=== PATIENT | male | born 1965 | race African-American/Black ===

== ENCOUNTER 2018-05-19 21:12 | Emergency (ER) | payer MEDICAID ==
[~2018-05-19] VITALS: Ht 175.3 cm; Wt 117.9 kg
--- NOTE | 2018-05-19 21:20 | NUR ---
ED Nurse Note: Patient walk in c/o left knee pain for 4x hours. Patient states he was walking up the stairs, twisted his L knee, and heard a pop.STEVED seen Pt at bedside.
[2018-05-19] MEDS ORDERED: ASPIR 8181 MG ORAL (21:23)
[2018-05-19] MEDS ORDERED: QUETIAPINE FUMA25 MG ORAL (21:23)
--- NOTE | 2018-05-19 21:37 | Emergency Room Report ---
History of Present Illness General Chief Complaint: Lower Extremity Injury Source: Patient Present Illness HPI Patient presents with left knee pain. He was walking stairs and twisted his knee. He heard a "pop". He's had reconstructive surgery on that knee although he can't state specifically what it was for. He's had had some physical therapy with the knee. He hasn't taken any medication for pain. The pain is 10 /10 at this time - aching and sharp. He is unable to weight-bear. He has not iced it. Pain radiates towards his groin. Patient had a pacemaker placed last month for slow heart rate. No chest pain or dizziness. 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 [facility] Reviewed Nursing Documentation: PMH: Agreed; PSxH: Agreed Nursing Documentation-PMH Past Medical History: No History, Except For Hx Cardiac Problems: Yes - bradycardia Hx Pacemaker: Yes - pacemaker 04/2018 Review of Systems Constitutional: Denies: fever Cardiovascular: Reports: see HPI Musculoskeletal: Reports: see HPI Skin: Denies: rash Neurological: Denies: numbness Physical Exam Vital Signs Date Time Temp Pulse Resp B/P (MAP) Pulse Ox O2 Delivery O2 Flow Rate FiO2 05/19/18 21:21 99.1 99 24 145/83 96 Room Air Sp02 EP Interpretation: reviewed, normal General Appearance: obese Head: normocephalic, atraumatic Eyes: bilateral eye normal inspection, bilateral eye PERRL ENT: hearing grossly normal, normal voice Neck: full range of motion, supple Respiratory: lungs clear, normal breath sounds, no respiratory distress, speaking full sentences, other - pacer R Cardiovascular #1: regular rate, rhythm Cardiovascular #2: 2+ dorsalis pedis (L) Gastrointestinal: non tender, overweight Musculoskeletal: no calf tenderness, pelvis stable, decreased range of mation, swelling, other - ligamients stable but lateral tenderness. Unable to bend knee for drawer or Applie's complression Neurologic: alert, normal gait, other - distal neuro normal Psychiatric: mood/affect normal Skin: no rash Medical Decision Making Diagnostic Impression: Primary Impression: Left knee sprain Qualified Codes: S83.422A - Sprain of lateral collateral ligament of left knee , initial encounter Additional Impression: BMI 38.0-38.9,adult ER Course Patient presents with left knee injury. Differential includes strain, sprain, meniscus injury, other ligament injury and fracture. X-rays are indicated as well as analgesia. Also we will ice the wound. Xrays with DJD, small effusion. Still with pain. Analgesia repeated. States pain "unchanged" but obviously less distress, eye closed and apparently sleeping. Immobilizer applied and adjusted by me. Position good and neurovasc normal. He is against crutches, however, I recommend these. Patient stable for outpatient observation and treatment. Other X-Ray Diagnostic Results Other X-Ray Diagnostic Results : X-Ray ordered: Left knee # of Views/Limited Vs Complete: 3 View Indication: Pain EP Interpretation: Yes Interpretation: no dislocation, no fractures, other - Soft tissue swelling, small effusion and DJD Impression: Other Electronically Signed by: Andrews Meyers MD Last Vital Signs Date Time Temp Pulse Resp B/P (MAP) Pulse Ox O2 Delivery O2 Flow Rate FiO2 05/19/18 23:50 98.5 89 20 138/77 96 Room Air Status: improved Disposition: HOME, SELF-CARE Condition: Improved Scripts Tramadol Hcl* (ULTRAM*) 50 Mg Tablet 50 MG ORAL Q6H PRN for For Pain, #8 TAB 0 Refills Prov: Andrews Meyers MD 05/19/18 Acetaminophen (Tylenol) 325 Mg Tablet 650 MG ORAL Q6H PRN for Prn Pain/Headache/Temp > 101, #20 TAB 0 Refills Prov: Andrews Meyers MD 05/19/18 Ibuprofen* (MOTRIN*) 600 Mg Tablet 600 MG ORAL Q6H PRN for For Pain, #20 TAB Prov: Andrews Meyers MD 05/19/18 Andrews Meyers MD May 19, 2018 21:37
[2018-05-19] MEDS ORDERED: Morphine Sulfate 4mg/ml Inj (IV/IM USE ONLY) IVP ONE ×2 (21:45→23:15)
[2018-05-19] MEDS ORDERED: Ketorolac 30mg Inj IV ONE (21:45)
--- NOTE | 2018-05-19 21:57 | Diagnostic Imaging Report ---
EXAM: XR Left Knee, 3 views CLINICAL HISTORY: TRAUMA TECHNIQUE: Three views of the left knee. COMPARISON: No relevant prior studies available. FINDINGS: Bones/joints: No acute fracture. Small effusion. Severe degenerative changes. Soft tissues: Soft tissue calcification in the calf region. IMPRESSION: No acute fracture.
[2018-05-19] MEDS ORDERED: IBUPROFEN600 MG ORAL (23:11)
[2018-05-19] MEDS ORDERED: TYLENOL325 MG ORAL (23:11)
[2018-05-19] MEDS ORDERED: TRAMADOL HCL50 MG ORAL (23:11)
[2018-05-19 23:50] VITALS: BP 138/77
--- NOTE | 2018-05-19 23:50 | NUR ---
ED Nurse Note: Pt cleared DC by ERMD. Pt is AO [id number], VSS, on room air no distress. ID bend and IV site removed. Belongings given to Pt. DC and Meds instructions given to Pt, Pt understood well. Pt out of unit with wheel chair.
== END 2018-05-19 23:50 | disposition home or self-care (01) ==
LOC: EMR 23:50
DX: S83.92XA Sprain of unspecified site of left knee, initial encounter (principal); X50.1XXA Overexertion from prolonged static or awkward postures, initial encounter; Y92.89 Other specified places as the place of occurrence of the external cause; Z95.0 Presence of cardiac pacemaker
CPT/HCPCS: 73562; 96374; 96375; 96376; 99284; J1885; J2270; J2405

== ENCOUNTER 2018-05-21 13:31 | Emergency (ER) | payer MEDICAID ==
[~2018-05-21] VITALS: Ht 175.3 cm; Wt 117.9 kg
[~2018-05-21 13:31] MED LIST: ASPIR 8181 MG ORAL; IBUPROFEN600 MG ORAL; QUETIAPINE FUMA25 MG ORAL; TRAMADOL HCL50 MG ORAL; TYLENOL325 MG ORAL
[2018-05-21] MEDS ORDERED: NKM (13:40)
[2018-05-21 13:42] VITALS: BP 125/78
--- NOTE | 2018-05-21 13:45 | NUR ---
ED Nurse Note: patient walked into ED c/o of irritaton in his pacemaker along with 8/10 leg pain, patient did get a surgery for his pacemaker on april 2018 and is located on the upper right side of his chest. after being seen by JACQUELINE, JACQUELINE has stated taht the patient has an air pocket that is located on top of his pacemaker, patient is ambulatory however walks with a crutch on his left side that he uses as a cane
[2018-05-21] MEDS ORDERED: Ketorolac 30mg Inj IM ONE (14:00)
--- NOTE | 2018-05-21 14:00 | Emergency Room Report ---
History of Present Illness General Chief Complaint: General Complaint Source: Patient Present Illness HPI Patient is a 52-year-old male who presented after increased left knee pain. Patient had recent injury to his left knee which he states the knee medially buckled. Patient had recently been seen and been x-rayed and was placed in an immobilizer. Patient subsequently was noted to have increased discomfort. Patient additionally reports having some continued pain at his pacemaker site. Patient had pacemaker placed approximately 3 weeks ago. Patient denies any fever. He reports having discomfort to the pocket area. Patient denies any central chest discomfort. Allergies: Coded Allergies: No Known Allergies (Unverified , 05/19/18) Patient History Reviewed Nursing Documentation: PMH: Agreed; PSxH: Agreed Nursing Documentation-PMH Past Medical History: No History, Except For Hx Cardiac Problems: Yes - bradycardia Hx Pacemaker: Yes - pacemaker 04/2018 Review of Systems All Other Systems: negative except mentioned in HPI Physical Exam Vital Signs Date Time Temp Pulse Resp B/P (MAP) Pulse Ox O2 Delivery O2 Flow Rate FiO2 05/21/18 13:35 98.2 91 25 125/78 96 Room Air General Appearance: well appearing, obese, Chronically Ill Head: normocephalic, atraumatic ENT: hearing grossly normal, normal voice Neck: full range of motion, supple Respiratory: no respiratory distress, speaking full sentences Musculoskeletal: no calf tenderness, swelling, other - pain on medial stress, minimal laxity Neurologic: normal gait Psychiatric: mood/affect normal Skin: normal color, no rash, other - fluid collection around pacemaker, no erythema or increased tenderness Medical Decision Making Diagnostic Impression: Primary Impression: Left knee sprain Additional Impression: Seroma after procedure ER Course . Patient 52-year-old male presented after increased right-sided chest discomfort and left-sided knee pain. patient had recent imaging. Differential diagnosis include was not limited to knee sprain, meniscal tear, arthritis, among others. Patient has a benign exam and does not appear to require any further imaging or laboratory testing at this time. Patient's pocket does not appear to be infected.I discussed the patient with his cardiothoracic surgeon Dr. Moore who stated the patient had a fairly large dissection and has been having an improving seroma in that area. Patient will be discharged home. He will patient was advised to follow-up with his primary care physician for recheck.Patient does not have any evidence of infection at this time. Patient's knee appears to be mildly swollen. He was placed in a knee immobilizer. Patient will be discharged home. He already has crutches.Patient declined injection of nonnarcotic pain medication.Patient had recently been given prescription for tramadol. We will prescribe the patient Voltaren gel. Patient was advised to follow-up with his primary care physician for orthopedic referral and reevaluation of the pocket.Patient was given safe pain medication prescribing information and I have concerns about his narcotic use after discussion with the cardiothoracic surgeon. Last Vital Signs Date Time Temp Pulse Resp B/P (MAP) Pulse Ox O2 Delivery O2 Flow Rate FiO2 05/21/18 13:42 91 25 Room Air 05/21/18 13:42 98.2 125/78 96 Status: improved Disposition: HOME, SELF-CARE Condition: Stable Scripts Diclofenac Sodium (VOLTAREN) 100 Gm Gel..gram. 5 GM TP DAILY, #120 GM Prov: Dayne Barrera MD 05/21/18 Dayne Barrera MD May 21, 2018 14:00
--- NOTE | 2018-05-21 14:07 | NUR ---
ED Nurse Note: patient refused toradol shot, Dr. Barrera notified and aware
[2018-05-21] MEDS ORDERED: VOLTAREN100 G1 TP (14:19)
[2018-05-21 14:30] VITALS: BP 132/65
--- NOTE | 2018-05-21 14:31 | NUR ---
ED Nurse Note: Pt AAOX4. ambulatory. left with steady gait. Pt education is done regarding d/c papers and prescriptions. Pt. verbalized the understanding of the teaching. VSS. ID armband removed
== END 2018-05-21 14:31 | disposition home or self-care (01) ==
LOC: EMR 14:07
DX: S83.92XA Sprain of unspecified site of left knee, initial encounter (principal); X58.XXXA Exposure to other specified factors, initial encounter; Y92.9 Unspecified place or not applicable; R00.1 Bradycardia, unspecified; Z95.0 Presence of cardiac pacemaker
CPT/HCPCS: 99282; J1885

== ENCOUNTER 2018-06-07 13:33 | Emergency (ER) | payer MEDICAID ==
[~2018-06-07] VITALS: Ht 177.8 cm; Wt 124.7 kg
[~2018-06-07 13:33] MED LIST changes: +NKM; +VOLTAREN100 G1 TP
[2018-06-07 14:00] VITALS: BP 124/81
[2018-06-07] MEDS ORDERED: Ipratropium 0.02% Inh Soln 2.5ml UD HHN ONE (14:00)
[2018-06-07] MEDS ORDERED: Metoclopramide 10mg/2ml Inj IVP ONE (14:00)
[2018-06-07] MEDS ORDERED: Morphine Sulfate 4mg/ml Inj (IV/IM USE ONLY) IVP ONE ×2 (14:00→15:00)
[2018-06-07] MEDS ORDERED: Albuterol ud Inhalation HHN ONE (14:00)
--- NOTE | 2018-06-07 14:00 | NUR ---
ED Nurse Note: pt present at ER from home c/o SOB, HAYNES 9/10, and BLE pain 9/10. pt has dx of CHF and per pt, he has not taken Lasix for a month because he ran out of medication. wheezing noted on all quadrants. pt aao x4 skin dry and thick but no wound noted. pt is on 4L/min via simple mask.
[2018-06-07 14:39] LABS: BASOPHILS % (AUTO) 1.2 % (0.0-2.0); EOSINOPHILS % (AUTO) 3.6 % (0.0-3.0); HEMATOCRIT 34.7 % (42.0-52.0); HEMOGLOBIN 11.2 G/DL (14.2-18.0); LYMPHOCYTES % (AUTO) 23.4 % (20.0-45.0); MEAN CORPUSCULAR VOLUME 89 FL (80-99); NEUTROPHILS % (AUTO) 62.8 % (45.0-75.0); PLATELET COUNT 408 K/UL (150-450); RED CELL DISTRIBUTION WIDTH 14.5 % (11.6-14.8); WHITE BLOOD COUNT 9.6 K/UL (4.8-10.8)
[2018-06-07 14:48] LABS: ANION GAP 7 mmol/L (5-15); BLOOD UREA NITROGEN 7 mg/dL (7-18); CALCIUM 8.6 MG/DL (8.5-10.1); CARBON DIOXIDE 27 MMOL/L (21-32); CHLORIDE 108 MMOL/L (98-107); CREATININE 0.9 MG/DL (0.55-1.30); POTASSIUM 4.3 MMOL/L (3.5-5.1); SODIUM 142 MMOL/L (136-145)
[2018-06-07 14:53] LABS: APPEARANCE,URINE CLEAR; BILIRUBIN, URINE NEGATIVE (NEGATIVE); GLUCOSE, URINE (UA) NEGATIVE (NEGATIVE); KETONES,URINE NEGATIVE (NEGATIVE); LEUKOCYTE ESTERASE ,URINE 1+ (NEGATIVE); NITRITE,URINE NEGATIVE (NEGATIVE); PH,URINE 5 (4.5-8.0); PROTEIN,URINE NEGATIVE (NEGATIVE); UROBILINOGEN,URINE NORMAL MG/DL (0.0-1.0)
[2018-06-07] MEDS ORDERED: Ketorolac 30mg Inj IV ONE (15:00)
[2018-06-07 15:03] LABS: COLOR,URINE YELLOW
[2018-06-07 15:04] LABS: ALANINE AMINOTRANSFERASE 22 U/L (12-78); ALBUMIN 3.2 G/DL (3.4-5.0); ALBUMIN/GLOBULIN RATIO 0.8 (1.0-2.7); ALKALINE PHOSPHATASE 162 U/L (46-116); ASPARTATE AMINO TRANSFERASE 17 U/L (15-37); BILIRUBIN,TOTAL 0.2 MG/DL (0.2-1.0); CKMB 1.3 NG/ML (0.0-3.6); CREATINE KINASE 177 U/L (26-308)
--- NOTE | 2018-06-07 15:46 | NUR ---
ED Nurse Note: Report given to SHELLI Hoover. pt will leave after CT scan.
--- NOTE | 2018-06-07 15:48 | NUR ---
ED Nurse Note: pt refused CT scan. made aware.
--- NOTE | 2018-06-07 15:54 | NUR ---
ED Nurse Note: pt insisted to leave AMA. spoke to doctor and pt informed the risk of ama when he still has SOB and pain. pt aao x4 and insisting to leave with fully understanding.
[2018-06-07] MEDS ORDERED: LEVAQUIN750 MG ORAL (15:55)
[2018-06-07] MEDS ORDERED: FUROSEMIDE40 MG ORAL (15:55)
[2018-06-07] MEDS ORDERED: Levofloxacin 750mg tab ORAL ONE (16:00)
--- NOTE | 2018-06-07 16:03 | NUR ---
ED Nurse Note: pt and physician signed on AMA consent. VSS, and pt verbalized improved pain to 4/10 but still SOB upon ADLs and all extremities edema present. pt still disagreed with hospitalization. id band and iv removed.
[2018-06-07 16:08] VITALS: BP 139/88
--- NOTE | 2018-06-07 16:10 | NUR ---
ED Nurse Note: pt ambulated to leave AMA with 1 crutch in Rt side.
--- NOTE | 2018-06-07 16:51 | Diagnostic Imaging Report ---
Indication: Shortness of breath Technique: 2 views of the chest Comparison: None Findings: Body habitus limits evaluation. The heart is mildly enlarged. Lungs and pleural spaces are probably clear. There is a right chest bifocal pacemaker. Impression: Cardiomegaly. No definite acute process
--- NOTE | 2018-06-07 16:54 | Emergency Room Report ---
History of Present Illness General Chief Complaint: Dyspnea/Respdistress Source: Patient Present Illness HPI 52-year-old male presents ED complaining of shortness of breath, coughing. Notes leg swelling. Started this morning. Denies chest pain. Denies fevers or chills. Denies cough. Complaining of headache. Throbbing, 8 out of 10, right-sided. Notes history of migraines. Denies photophobia or blurry vision. Denies nausea or vomiting. States that he does not have his Lasix at this time. States he was recently in [facility]. No other aggravating relieving factors. Denies any other associated symptoms Allergies: Coded Allergies: No Known Allergies (Unverified , 05/19/18) Patient History Past Medical History: CHF Past Surgical History: pacemaker Pertinent Family History: none Social History: Denies: smoking, alcohol use, drug use Immunizations: UTD Reviewed Nursing Documentation: PMH: Agreed; PSxH: Agreed Nursing Documentation-PMH Past Medical History: No History, Except For Hx Cardiac Problems: Yes - bradycardia, chf Hx Pacemaker: Yes - pacemaker 04/2018 Review of Systems All Other Systems: negative except mentioned in HPI Physical Exam Vital Signs Date Time Temp Pulse Resp B/P (MAP) Pulse Ox O2 Delivery O2 Flow Rate FiO2 06/07/18 13:42 98.4 76 25 133/93 100 Simple Mask 4.0 06/07/18 14:00 98 Sp02 EP Interpretation: reviewed, normal General Appearance: no apparent distress, alert, GCS 15, non-toxic, obese Head: normocephalic, atraumatic Eyes: bilateral eye normal inspection, bilateral eye PERRL ENT: hearing grossly normal, normal pharynx, no angioedema, normal voice Neck: full range of motion, supple/symm/no masses Respiratory: chest non-tender, crackles, speaking full sentences, wheezing Cardiovascular #1: regular rate, rhythm, no edema Cardiovascular #2: 2+ carotid (R), 2+ carotid (L), 2+ radial (R), 2+ radial (L) , 2+ dorsalis pedis (R), 2+ dorsalis pedis (L) Gastrointestinal: normal bowel sounds, non tender, soft, non-distended, no guarding, no rebound Rectal: deferred Genitourinary: normal inspection, no CVA tenderness Musculoskeletal: back normal, gait/station normal, normal range of motion, swelling Neurologic: alert, oriented x3, responsive, motor strength/tone normal, sensory intact, speech normal Psychiatric: judgement/insight normal, memory normal, mood/affect normal, no suicidal/homicidal ideation Reflexes: 3+ bicep (R), 3+ bicep (L), 3+ tricep (R), 3+ tricep (L), 3+ knee (R) , 3+ knee (L) Skin: normal color, no rash, warm/dry, well hydrated Lymphatic: no adenopathy Medical Decision Making Diagnostic Impression: Primary Impression: CHF (congestive heart failure) Qualified Codes: I50.9 - Heart failure, unspecified Additional Impression: Respiratory distress ER Course Hospital Course 52-year-old male presents ED complaining of shortness of breath, leg swelling, headache Differential diagnoses include: [place]/unstable angina, contusion, muscle strain, PTX, rib fracture Clinical course Patient placed on stretcher. on cardiac nurse. After initial history and physical I ordered labs, EKG, chest x-ray, pain meds, nebs labs reviewed- no leukocytosis, hemoglobin/hematocrit stable, electrolytes ok, BNP not markedly elevated EKG - NSR, no acute ischemic changes interpreted by me Chest x-ray- cardiomegaly, pacemaker patient requiring additional pain meds. CURES shows patient receiving extensive narcotic medications Patient declined CT head Antibiotics given. Lasix given. Recommend patient to be admitted. Patient states he does not want to be admitted understands the risks of leaving. Patient has competency to make his own decisions. Signed AMA form. Provide prescriptions for Levaquin, Lasix and states he will follow-up with her PMD I. I feel this is a highly complex case requiring extensive working including EKG/Rhythm strip, Xray/CT/US, Blood/urine lab work, repeat exams while in ED, and administration of strong opiates/narcotics for pain control, admission to hospital or close patient follow up. Diagnosis - CHF respiratorry distress patient left AMA Labs Test 06/07/18 14:20 06/07/18 14:42 White Blood Count 9.6 K/UL (4.8-10.8) Red Blood Count 3.90 M/UL (4.70-6.10) Hemoglobin 11.2 G/DL (14.2-18.0) Hematocrit 34.7 % (42.0-52.0) Mean Corpuscular Volume 89 FL (80-99) Mean Corpuscular Hemoglobin 28.7 PG (27.0-31.0) Mean Corpuscular Hemoglobin Concent 32.4 G/DL (32.0-36.0) Red Cell Distribution Width 14.5 % (11.6-14.8) Platelet Count 408 K/UL (150-450) Mean Platelet Volume 6.0 FL (6.5-10.1) Neutrophils (%) (Auto) 62.8 % (45.0-75.0) Lymphocytes (%) (Auto) 23.4 % (20.0-45.0) Monocytes (%) (Auto) 9.0 % (1.0-10.0) Eosinophils (%) (Auto) 3.6 % (0.0-3.0) Basophils (%) (Auto) 1.2 % (0.0-2.0) Sodium Level 142 MMOL/L (136-145) Potassium Level 4.3 MMOL/L (3.5-5.1) Chloride Level 108 MMOL/L (98-107) Carbon Dioxide Level 27 MMOL/L (21-32) Anion Gap 7 mmol/L (5-15) Blood Urea Nitrogen 7 mg/dL (7-18) Creatinine 0.9 MG/DL (0.55-1.30) Estimat Glomerular Filtration Rate > 60 mL/min (>60) Glucose Level 128 MG/DL (74-106) Lactic Acid Level 1.00 mmol/L (0.4-2.0) Calcium Level 8.6 MG/DL (8.5-10.1) Total Bilirubin 0.2 MG/DL (0.2-1.0) Aspartate Amino Transf (AST/SGOT) 17 U/L (15-37) Alanine Aminotransferase (ALT/SGPT) 22 U/L (12-78) Alkaline Phosphatase 162 U/L (46-116) Total Creatine Kinase 177 U/L (26-308) Creatine Kinase MB 1.3 NG/ML (0.0-3.6) Creatine Kinase MB Relative Index 0.7 Pro-B-Type Natriuretic Peptide 217 pg/mL (0-125) Total Protein 7.1 G/DL (6.4-8.2) Albumin 3.2 G/DL (3.4-5.0) Globulin 3.9 g/dL Albumin/Globulin Ratio 0.8 (1.0-2.7) Urine Color Yellow Urine Appearance Clear Urine pH 5 (4.5-8.0) Urine Specific Bend 1.015 (1.005-1.035) Urine Protein Negative (NEGATIVE) Urine Glucose (UA) Negative (NEGATIVE) Urine Ketones Negative (NEGATIVE) Urine Blood Negative (NEGATIVE) Urine Nitrite Negative (NEGATIVE) Urine Bilirubin Negative (NEGATIVE) Urine Urobilinogen Normal MG/DL (0.0-1.0) Urine Leukocyte Esterase 1+ (NEGATIVE) Urine RBC 0 /HPF (0 - 0) Urine WBC 2-4 /HPF (0 - 0) Urine Squamous Epithelial Cells Occasional /LPF Urine Bacteria Occasional /HPF (NONE) Urine Mucus Few /LPF (NONE/OCC) EKG Diagnostic Results Rate: normal Rhythm: NSR ST Segments: no acute changes ASA given to the pt in ED: No Rhythm Strip Diag. Results EP Interpretation: yes Rhythm: NSR, no PVC's, no ectopy Chest X-Ray Diagnostic Results Chest X-Ray Diagnostic Results : Chest X-Ray Ordered: Yes # of Views/Limited/Complete: 1 View Indication: Shortness of Breath EP Interpretation: Yes Interpretation: no pneumothorax, other - pacemaker, cardiomegaly. interstitial congestion Impression: Other - chf Electronically Signed by: Electronically signed by Laith Espana MD Last Vital Signs Date Time Temp Pulse Resp B/P (MAP) Pulse Ox O2 Delivery O2 Flow Rate FiO2 06/07/18 16:08 98.2 72 17 139/88 96 Room Air 06/07/18 16:08 4.0 36 Status: improved Disposition: AGAINST MEDICAL ADVICE Condition: Improved Scripts Furosemide* (LASIX*) 40 Mg Tablet 40 MG ORAL DAILY, #30 TAB Prov: Laith Espana MD 06/07/18 Levofloxacin* (LEVAQUIN*) 750 Mg Tablet 750 MG ORAL DAILY for 5 Days, TAB Prov: Laith Espana MD 06/07/18 Patient Instructions: Heart Failure, [id number] Laith Espana MD Jun 07, 2018 16:54
[2018-06-08] MEDS ORDERED: POTASSIUM 25 M25 ME1 PO (12:38)
== END 2018-06-07 16:08 | disposition left against medical advice (07) ==
LOC: EMR 14:00 → UNDOADMIN 15:13 → 2E 15:13 → EDBEDREQ 15:42
DX: I50.9 Heart failure, unspecified (principal); R06.03 Acute respiratory distress; Z95.0 Presence of cardiac pacemaker
CPT/HCPCS: 36415; 71045; 80053; 81003; 82550; 82553; 83605; 83880; 85025; 87040; 93005; 94640; 94664; 96374; 96375; 96376; 99285; J1885; J1940; J2270; J2765

== ENCOUNTER 2018-06-07 17:56 | Inpatient (IN) | payer MEDICAID ==
[~2018-06-07] VITALS: Ht 180.3 cm; Wt 115.7 kg
[~2018-06-07 17:56] MED LIST changes: +FUROSEMIDE40 MG ORAL; +LEVAQUIN750 MG ORAL
[2018-06-07 18:30] VITALS: BP 105/68
[2018-06-07 20:00] VITALS: BP 111/64
[2018-06-07] MEDS ORDERED: Nitroglycerin Subl 0.4mg tab SL PRN (21:30)
[2018-06-07] MEDS ORDERED: dilTIAZem HCl 25mg/5ml Inj IV PRN (21:30)
[2018-06-07] MEDS ORDERED: Albuterol/Ipratropium 3ml neb HHN PRN (21:30)
[2018-06-07] MEDS ORDERED: Ketorolac 30mg Inj IV PRN (21:30)
[2018-06-07] MEDS ORDERED: Enalaprilat 2.5mg/2ml Inj IV PRN (21:30)
[2018-06-07] MEDS ORDERED: Miralax 17gm pkt ORAL PRN (21:30)
[2018-06-07] MEDS: Morphine Sulfate 4mg/ml Inj (IV/IM USE ONLY) IVP PRN (22:29)
--- NOTE | 2018-06-07 22:48 | Emergency Room Report ---
History of Present Illness General Chief Complaint: Dyspnea/Respdistress Source: Patient Present Illness HPI 52-year-old male presents ED for evaluation. Patient complaining of shortness of breath. Was seen here earlier today and was recommended to be admitted for CHF exacerbation. Patient left AMA. Patient returns today stating that he would like to be admitted at this time. Denies chest pain. Notes leg swelling. Denies fevers or chills. No other aggravating relieving factors. Denies any other associated symptoms Allergies: Coded Allergies: ACETAMINOPHEN (Unverified Allergy, Severe, tongue swell, 06/07/18) IBUPROFEN (Unverified Allergy, Severe, tongue swell, 06/07/18) Patient History Past Medical History: CHF Past Surgical History: pacemaker Pertinent Family History: none Social History: Denies: smoking, alcohol use, drug use Immunizations: UTD Reviewed Nursing Documentation: PMH: Agreed; PSxH: Agreed Nursing Documentation-PMH Past Medical History: No History, Except For Hx Cardiac Problems: Yes - bradycardia, chf Hx Pacemaker: Yes - pacemaker 04/2018 Review of Systems All Other Systems: negative except mentioned in HPI Physical Exam Vital Signs Date Time Temp Pulse Resp B/P (MAP) Pulse Ox O2 Delivery O2 Flow Rate FiO2 06/07/18 18:12 98.6 75 24 123/68 94 Room Air 06/07/18 18:30 98 Sp02 EP Interpretation: reviewed, normal General Appearance: alert, GCS 15, non-toxic, obese Head: normocephalic, atraumatic Eyes: bilateral eye normal inspection, bilateral eye PERRL ENT: hearing grossly normal, normal pharynx, no angioedema, normal voice Neck: full range of motion, supple/symm/no masses Respiratory: chest non-tender, normal breath sounds, crackles, speaking full sentences Cardiovascular #1: regular rate, rhythm, no edema Cardiovascular #2: 2+ carotid (R), 2+ carotid (L), 2+ radial (R), 2+ radial (L) , 2+ dorsalis pedis (R), 2+ dorsalis pedis (L) Gastrointestinal: normal bowel sounds, non tender, soft, non-distended, no guarding, no rebound Rectal: deferred Genitourinary: normal inspection, no CVA tenderness Musculoskeletal: back normal, gait/station normal, normal range of motion, non- tender Neurologic: alert, oriented x3, responsive, motor strength/tone normal, sensory intact, speech normal Psychiatric: judgement/insight normal, memory normal, mood/affect normal, no suicidal/homicidal ideation Reflexes: 3+ bicep (R), 3+ bicep (L), 3+ tricep (R), 3+ tricep (L), 3+ knee (R) , 3+ knee (L) Skin: normal color, no rash, warm/dry, well hydrated Lymphatic: no adenopathy Medical Decision Making Diagnostic Impression: Primary Impression: CHF (congestive heart failure) Qualified Codes: I50.9 - Heart failure, unspecified ER Course Hospital Course 52-year-old male presents ED complaining of shortness of breath, leg swelling x2 weeks Differential diagnoses include: [place]/unstable angina, contusion, muscle strain, PTX, rib fracture Clinical course 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 Patient was here earlier today with full workup. See prior visit Included labs, EKG, chest x-ray EKG show no acute ischemic changes Chest x-ray shows cardiomegaly with interstitial congestion Patient has stable vitals. No signs of distress. Given Lasix earlier today. Patient will be admitted to Dr. Pedro Luis Cevallos. I feel this is a highly complex case requiring extensive working including EKG/Rhythm strip, Xray/CT/US, Blood/urine lab work, repeat exams while in ED, and administration of strong opiates/narcotics for pain control, admission to hospital or close patient follow up. Diagnosis - CHF exacerbation admitted to telemetry in serious condition see prior visit for lab results EKG Diagnostic Results EP Interpretation: see prior visit for EKG Last Vital Signs Date Time Temp Pulse Resp B/P (MAP) Pulse Ox O2 Delivery O2 Flow Rate FiO2 06/07/18 20:00 98.6 92 21 111/64 97 Room Air 98 Status: improved Disposition: ADMITTED INPATIENT Condition: Serious Referrals: [facility] (PCP) Laith Espana MD Jun 07, 2018 22:48
[2018-06-07 23:50] VITALS: BP 123/86
[2018-06-08] MEDS: Morphine Sulfate 4mg/ml Inj (IV/IM USE ONLY) IVP PRN ×3 (02:24→10:12)
[2018-06-08 07:02] LABS: BASOPHILS % (AUTO) 0.8 % (0.0-2.0); EOSINOPHILS % (AUTO) 3.5 % (0.0-3.0); HEMATOCRIT 33.5 % (42.0-52.0); HEMOGLOBIN 10.9 G/DL (14.2-18.0); LYMPHOCYTES % (AUTO) 22.3 % (20.0-45.0); MEAN CORPUSCULAR VOLUME 89 FL (80-99); NEUTROPHILS % (AUTO) 62.5 % (45.0-75.0); PLATELET COUNT 382 K/UL (150-450); RED BLOOD COUNT 3.75 M/UL (4.70-6.10); RED CELL DISTRIBUTION WIDTH 14.7 % (11.6-14.8); WHITE BLOOD COUNT 9.4 K/UL (4.8-10.8)
[2018-06-08 07:16] LABS: INR 1.1 (0.9-1.1)
[2018-06-08 07:57] LABS: CHOLESTEROL 168 MG/DL (< 200); HDL CHOLESTEROL 25 MG/DL (40-60); TRIGLYCERIDES 261 MG/DL (30-150)
[2018-06-08 08:00] VITALS: BP 122/76
[2018-06-08] MEDS ORDERED: Furosemide 40mg tab ORAL SCH (09:00)
[2018-06-08] MEDS ORDERED: Aspirin Baby 81mg ORAL SCH (09:00)
[2018-06-08] MEDS ORDERED: Heparin 5000 units/ml inj SUBQ SCH (09:00)
[2018-06-08] MEDS ORDERED: POTASSIUM 25 M25 ME1 PO (12:38)
--- NOTE | 2018-06-08 12:44 | Consultation ---
History of Present Illness General Date patient seen: Jun 08, 2018 Chief Complaint: Dyspnea/Respdistress Present Illness HPI 52-year-old male with hx of Pacemaker, CHF presented to ED for evaluation of shortness of breath. Denied chest pain. Notes leg swelling. Denies fevers or chills. No other aggravating relieving factors. Denies any other associated symptoms. Allergies: Coded Allergies: ACETAMINOPHEN (Unverified Allergy, Severe, tongue swell, 06/07/18) IBUPROFEN (Unverified Allergy, Severe, tongue swell, 06/07/18) Medication History Scheduled Aspirin* (Aspir 81*), 81 MG ORAL DAILY, (Reported) Diclofenac Sodium (Voltaren), 5 GM TP DAILY Furosemide* (Lasix*), 40 MG ORAL DAILY Levofloxacin* (Levaquin*), 750 MG ORAL DAILY No Known Medications* (NKM - No Known Medications*), 0 ., (Reported) Potassium Bicarbonate/Cit Ac (Potassium 25 Meq Tablet Eff), 25 MEQ PO DAILY Quetiapine Fumarate* (Seroquel*), 25 MG ORAL DAILY, (Reported) Scheduled PRN Acetaminophen (Tylenol), 650 MG ORAL Q6H PRN for Prn Pain/Headache/Temp > 101 Ibuprofen* (Motrin*), 600 MG ORAL Q6H PRN for For Pain Tramadol Hcl* (Ultram*), 50 MG ORAL Q6H PRN for For Pain Patient History 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 Resuscitation status Full Code Advanced Directive on File Review of Systems All Other Systems: negative except mentioned in HPI Physical Exam General Appearance: WD/WN Lines, tubes and drains: peripheral HEENT: normocephalic, atraumatic Neck: non-tender, normal alignment Respiratory/Chest: chest wall non-tender, lungs clear Cardiovascular/Chest: normal peripheral pulses Abdomen: normal bowel sounds Genitourinary/Rectal: normal genital exam Last 24 Hour Vital Signs Date Time Temp Pulse Resp B/P (MAP) Pulse Ox O2 Delivery O2 Flow Rate FiO2 06/08/18 10:42 98.1 06/08/18 09:00 Room Air 06/08/18 08:00 98.1 63 24 122/76 (91) 96 06/08/18 08:00 70 06/08/18 04:00 82 06/08/18 00:00 73 06/07/18 23:50 96.8 71 17 123/86 (98) 96 06/07/18 22:39 Room Air 06/07/18 21:45 98.6 92 21 111/64 97 Room Air 98 06/07/18 20:00 98.6 92 21 111/64 97 Room Air 98 06/07/18 18:30 98.6 97 24 105/68 96 Room Air 06/07/18 18:30 75 22 Room Air 98 06/07/18 18:12 98.6 75 24 123/68 94 Room Air Intake and Output 06/07/18 06/08/18 19:00 07:00 Intake Total 0 ml Balance 0 ml Intake Oral 0 ml Laboratory Tests Test 06/08/18 06:05 White Blood Count 9.4 K/UL (4.8-10.8) Red Blood Count 3.75 M/UL (4.70-6.10) L Hemoglobin 10.9 G/DL (14.2-18.0) L Hematocrit 33.5 % (42.0-52.0) L Mean Corpuscular Volume 89 FL (80-99) Mean Corpuscular Hemoglobin 29.1 PG (27.0-31.0) Mean Corpuscular Hemoglobin Concent 32.6 G/DL (32.0-36.0) Red Cell Distribution Width 14.7 % (11.6-14.8) Platelet Count 382 K/UL (150-450) Mean Platelet Volume 6.0 FL (6.5-10.1) L Neutrophils (%) (Auto) 62.5 % (45.0-75.0) Lymphocytes (%) (Auto) 22.3 % (20.0-45.0) Monocytes (%) (Auto) 11.0 % (1.0-10.0) H Eosinophils (%) (Auto) 3.5 % (0.0-3.0) H Basophils (%) (Auto) 0.8 % (0.0-2.0) Prothrombin Time 11.9 SEC (9.30-11.50) H Prothromb Time International Ratio 1.1 (0.9-1.1) Activated Partial Thromboplast Time 32 SEC (23-33) Troponin I 0.015 ng/mL (0.000-0.056) C-Reactive Protein, Quantitative 3.6 mg/dL (0.00-0.90) H Triglycerides Level 261 MG/DL (30-150) H Cholesterol Level 168 MG/DL (< 200) LDL Cholesterol 126 mg/dL (<100) H HDL Cholesterol 25 MG/DL (40-60) L Cholesterol/HDL Ratio 6.7 (3.3-4.4) H Thyroid Stimulating Hormone (TSH) 1.341 uiU/mL (0.358-3.740) Height (Feet): 5 Height (Inches): 11.00 Weight (Pounds): 255 Medications Current Medications Medications (Trade) Dose Ordered Sig/Sidra Route PRN Reason Start Time Stop Time Status Last Admin Dose Admin Albuterol/ Ipratropium (Albuterol/ Ipratropium) 3 ml Q4H PRN HHN Shortness of Breath 06/07/18 21:30 06/12/18 21:29 Aspirin (ASA) 162 mg DAILY ORAL 06/08/18 09:00 07/08/18 08:59 06/08/18 09:12 Diltiazem HCl (Cardizem) 10 mg Q1H PRN IV heart rate more than 120, 06/07/18 21:30 07/07/18 21:29 Enalaprilat (Vasotec) 2.5 mg Q6H PRN IV sbp more than 160 06/07/18 21:30 07/07/18 21:29 Furosemide (Lasix) 40 mg DAILY ORAL 06/08/18 09:00 07/08/18 08:59 06/08/18 09:13 Heparin Sodium (Porcine) (Heparin 5000 units/ml) 5,000 units EVERY 12 HOURS SUBQ 06/08/18 09:00 07/08/18 08:59 Morphine Sulfate (Morphine Sulfate) 2 mg Q4H PRN IVP severe Pain (Pain Scale 7-10) 06/07/18 21:30 06/14/18 21:29 06/08/18 10:12 Nitroglycerin (Ntg) 0.4 mg Q5M PRN SL Prn Chest Pain 06/07/18 21:30 07/07/18 21:29 Ondansetron HCl (Zofran) 4 mg Q6H PRN IVP Nausea & Vomiting 06/07/18 21:30 07/07/18 21:29 Polyethylene Glycol (Miralax) 17 gm DAILYPRN PRN ORAL Constipation 06/07/18 21:30 07/07/18 21:29 Quetiapine Fumarate (SEROquel) 25 mg DAILY ORAL 06/08/18 09:00 07/08/18 08:59 Temazepam (Restoril) 15 mg HSPRN PRN ORAL Insomnia 06/07/18 21:30 06/14/18 21:29 06/07/18 23:20 Assessment/Plan Problem List: (1) Acute on chronic systolic (congestive) heart failure ICD Codes: I50.23 - Acute on chronic systolic (congestive) heart failure SNOMED: 92003139, [id number] Assessment/Plan echo optimize cardiac meds respiratory treatment cardiology to see. Allan Eagle MD Jun 08, 2018 12:44
--- NOTE | 2018-06-10 15:38 | Discharge Summary ---
Discharge Summary Discharge Summary _ Chart summary DATE OF ADMISSION: 06/07/2018 DATE OF DISCHARGE: 06/08/2018 DISCHARGED BY: Dr. Cloud REASON FOR ADMISSION: 52 years old male with past medical history of congestive heart failure, hypertension pacemaker in 2018, presented to emergency department with complaint of shortness of breath. He reported leg swelling. He denied chest pain. He denied fever and chills. Upon evaluation vital signs revealed no fever , tachypnea with respiratory rate of 24 , stable blood pressure and pulse oximetry on room air. Laboratory workup showed no leukocytosis, hemoglobin 11.2, hematocrit 34.7. Patient was seen earlier in the emergency department, refused to be admitted and left AMA . Patient presented again and this time was agreeable to admission. EKG revealed no acute ischemic changes. Chest x-ray revealed mild cardiomegaly Lungs and pleural spaces were probably clear, some interstitial congestion. Patient received Lasix earlier , prior to this admission. CONSULTANTS: [facility] COURSE: Patient admitted to telemetry floor. Preliminary echocardiogram report revealed preserved ejection fraction 60%. No evidence of wall motion abnormality. Right ventricular systolic pressure of 24. Chest x-ray revealed cardiomegaly , but no definite acute process . Troponin negative, pro BNP 217. ECG revealed paced rhythm. Supplemental oxygen provided as needed to keep pulse oximetry above 92% , pulmonary toilet provided as needed. Pulse oximetry was stable on room air . Patient was on maintenance diuresis with close monitoring of volumes and cardiorenal parameters. Antiplatelet therapy with aspirin continued. DVT prophylaxis provided. Nitroglycerin was on board as needed. Lipid panel revealed mixed hyperlipidemia with triglycerides 261 and LDL 126. Patient was counseled on low-fat low-cholesterol diet. Patient recommended to start statin,m but he was reluctant at this time. Recommended therapeutic life style changes, and repeat lipid panel in 3 months. Bowel regimen instituted. Patient was stable for discharge home . Outpatient follow-up with primary care provider in one week. Due to rapid and unexpected improvement in patient condition , patient was discharged in 1 day. FINAL DIAGNOSES: Congestive heart failure exacerbation Pacemaker Mixed hyperlipidemia Morbid obesity DISCHARGE MEDICATIONS: See Medication Reconciliation list. DISCHARGE INSTRUCTIONS: Patient was discharged home.. Follow up with primary care provider in one week. I have been assigned to dictate discharge summary for this account. I was not involved in the patient's management. Olimpia Wells NP Jun 10, 2018 15:38
== END 2018-06-08 13:50 | disposition home or self-care (01) | DRG 194 ==
LOC: EMR 19:31 → 2E 20:04 → EDBEDREQ 20:49
DX: I50.23 Acute on chronic systolic (congestive) heart failure (principal); E66.01 Morbid (severe) obesity due to excess calories; E78.2 Mixed hyperlipidemia; Z95.0 Presence of cardiac pacemaker; Z68.35 Body mass index [BMI] 35.0-35.9, adult
CPT/HCPCS: 36415; 80061; 84443; 84484; 85025; 85610; 85730; 86140; 93306; 99285